=== PATIENT | male | born 1970 | race Caucasian/White ===

== ENCOUNTER 2018-09-06 05:17 | Day surgery (SDC) | payer BC, OTHER ==
[2018-09-05 12:38] VITALS: BMI 25.0
[~2018-09-06 05:17] MED LIST: BUPIVACAINE HCL/PF (5 MG/ML) 30 ML VIAL IJ ONE; ceFAZolin SODIUM 1 GM VIAL IVPB ONE
[2018-09-06] MEDS ORDERED: BUPIVACAINE HCL/PF 0.5% (5MG/ML) 10 ML VIAL ONE (07:26)
[2018-09-06] MEDS ORDERED: PROMETHAZINE HCL 25 MG/1 ML VIAL IVPUSH PRN (08:10)
[2018-09-06] MEDS ORDERED: oxyCODONE HCL 5 MG TABLET PO PRN (08:10)
[2018-09-06] MEDS ORDERED: ONDANSETRON 4 MG/2 ML VIAL IVPUSH PRN (08:10)
[2018-09-06] MEDS ORDERED: LACTATED RINGERS SOLUTION 1,000 ML IV SCH (08:15)
[2018-09-06] MEDS ORDERED: MIDAZOLAM HCL 2 MG/2 ML SINGLE DOSE VIAL ONE ×2 (08:20)
--- NOTE | 2018-09-06 08:23 | HP ---
[facility] - Chief Complaint Chief Complaint: right hand mass History of Present Illness: right hand mass History Source: Patient Limitations to Obtaining History: No Limitations - Past Medical History Allergies/Adverse Reactions: Allergies Allergy/AdvReac Type Severity Reaction Status Date / Time No Known Allergies Allergy Verified 09/06/18 07:07 - Current Medications Current Medications: Home Medications Medication Instructions Recorded NK [No Known Home Medication] 09/05/18 Satellite Physical Exam - Physical Examination Vital Signs: Vital Signs Period Temp Pulse Resp BP Sys/Ramirez Pulse Ox Last 24 Hr 98.2 F 82 20 134/99 99 General Appearance: Well Nourished ENT: Clear Lung: Clear to auscultation Heart: Regular rate & rhythm Breasts: Soft Abdomen: Soft Extremities: No edema Satellite Impression/Plan - Impression/Plan Impression: right hand mass, middle finger Operative Procedure: excision mass right middle finger Date to be Performed: 09/06/18
[2018-09-06] MEDS ORDERED: SUCCINYLCHOLINE CHLORIDE 200 MG/10 ML VIAL ONE (08:29)
[2018-09-06] MEDS ORDERED: PROPOFOL 20 ML ONE ×2 (08:29)
[2018-09-06] MEDS ORDERED: ceFAZolin SODIUM 1 GM VIAL IVPB ONE (08:29)
[2018-09-06] MEDS ORDERED: BUPIVACAINE HCL/PF (5 MG/ML) 30 ML VIAL IJ ONE (08:43)
--- NOTE | 2018-09-06 09:15 | OP ---
Operative Note - Note: Operative Date: 09/06/18 Pre-Operative Diagnosis: right hand mass Operation: excision right hand mass Post-Operative Diagnosis: Same as Pre-op Surgeon: Lanre Ramirez Anesthesiologist/MUSIC PROMOTER: Adeline Alva MD Anesthesia: Local, MAC Specimens Removed: mass, ganglion cyst Estimated Blood Loss (mls): 0 Blood Volume Replaced (mls): 0 Fluid Volume Replaced (mls): 800 Operative Report Dictated: Yes
--- NOTE | 2018-09-06 10:16 | OP ---
DATE OF OPERATION: 09/06/2018 PREOPERATIVE DIAGNOSIS: Right hand mass. POSTOPERATIVE DIAGNOSIS: Right hand mass, likely ganglion cyst. PROCEDURE: Excision mass, right hand. SURGEON: Lanre Lanier MD PIPE FINISHER: None. ANESTHESIOLOGIST: Adeline Alva MD ANESTHESIA: MAC anesthesia with local injection of 10 mL of 0.5% Marcaine 1% lidocaine mixed. SPECIMEN: Mass, right hand, likely ganglion cyst. BLOOD LOSS: None. BLOOD GIVEN: None. FLUID REPLACEMENT: 800 mL. COMPLICATIONS: None. INDICATIONS: This patient is a 48-year-old male with a preoperative diagnosis of a recurrent mass on the volar aspect of his right middle finger, proximal phalanx. After understanding the potential risks, complications, alternatives, and benefits of surgery versus nonsurgical treatment, the patient elected to undergo this procedure. DESCRIPTION OF PROCEDURE: The patient was brought to the operating room, peripheral IV was placed. One gram of IV Ancef was given, MAC anesthesia was induced. Right upper extremity was prepped and draped in sterile fashion. Oblique incision was marked out over the volar aspect of the proximal phalanx with a marking pen, and 10 mL of 0.5% Marcaine and 1% lidocaine mix was injected in and around the surgical incision and as a metacarpal head block. The entire case was done under 3.8 loupe magnification. The right upper extremity was elevated and exsanguinated with an Esmarch bandage. Tourniquet was inflated to 250 mmHg. The oblique incision was made with a No. 15 scalpel blade. Subcutaneous hemostasis was achieved with the bipolar cautery. Dissection done with a curved small Littler scissors. Great care was taken to identify and preserve all crossing neurovascular structures. A small cricket retractor was placed into the wound for better visualization as well as blunt-tipped Ragnell retractors. Additional circumferential dissection was done around this mass. At one point, it popped during the case and classic ganglion cyst like fluid was removed. It was relatively big, oblique, well circumscribed. It had only benign characteristics. There was a portion of it, the roots went all the way to the radial aspect of the middle finger. The root was followed, circumferentially dissected, and then decapitated at its base. The base was cauterized. The area was copiously irrigated and washed out. I then could not see or feel any other abnormal tissue. It was irrigated again, and closure done with 4-0 undyed Vicryl in the deep dermal layer, and final skin reapproximation was done with 4-0 nylon sutures. The area was then washed and dried, covered with Xeroform gauze, 4x4 gauze, fluffs between the fingers, Webril, and Coban. The tourniquet was taken down after a total tourniquet time of 19 minutes. There were no complications during the case. The patient tolerated the procedure quite well and was brought to the ambulatory recovery room in stable condition. LANRE LANIER M.D. [id number]
[2018-09-06 10:20] VITALS: TEMP 97.8
[2018-09-06 13:32] VITALS: BP 130/80; PULSE 82
--- NOTE | 2018-09-07 15:39 | PATH ---
Surgical Pathology Report Patient Name: STARR KENDRICK [facility]. Rec. #: [id number] /Age/Gender: 1970 (Age: 48) / M Account: [id number] Location: [facility] SURGICAL Taken: 09/06/2018 Received: 09/06/2018 Reported: 09/07/2018 Physicians: Lanre Ramirez M.D. Specimen(s) Received RIGHT MIDDLE FINGER MASS Clinical History Right middle finger mass Final Diagnosis MIDDLE FINGER, MASS, RIGHT, EXCISION: TENOSYNOVIAL TISSUE WITH MYXOID AND DEGENERATIVE CHANGES CONSISTENT WITH GANGLION CYST. Electronically Signed Radha Ortiz M.D. Gross Description Received in formalin labeled "right middle finger mass," is a 1.5 x 0.6 x 0.2 cm cuenca portion of soft tissue. The specimen is submitted in toto in one cassette. /09/06/201809/06/2018
== END 2018-09-06 12:15 | disposition home or self-care (01) ==
LOC: JASU-SURG 05:17
PROVIDERS: ATTEND Orthopaedic Surgery
PROC: 0LB70ZZ Excision of Right Hand Tendon, Open Approach (ICD-10-PCS; principal; 2018-09-06 08:00)
DX: M67.441 Ganglion, right hand (principal)
CPT/HCPCS: 88304-TC